=== PATIENT | male | born 1960 | race Caucasian/White ===

== ENCOUNTER 2017-05-24 08:13 | Outpatient (CLI) | payer OTHER ==
[~2017-05-24 08:13] MED LIST: CRESTOR10 MG; FENOFIBRATE134 MG; TRIGLIDE50 MG PO; VALSARTAN-HCTZ1 EACH; [UNRECOGNIZED DRUG - OTHER]
== END 2017-05-24 08:23 | disposition home or self-care (01) ==
LOC: MRI 08:13
DX: N28.1 Cyst of kidney, acquired (principal)
CPT/HCPCS: 74181

== ENCOUNTER → 2017-07-10 | Day surgery (SDC) | payer OTHER | END | disposition home or self-care (01) | LOC: AMB-ENDOS 12:01 | DX: D12.2 Benign neoplasm of ascending colon (principal); D12.3 Benign neoplasm of transverse colon; K64.1 Second degree hemorrhoids ==

== ENCOUNTER 2017-10-16 09:12 | Emergency (ER) | payer OTHER ==
[~2017-10-16] VITALS: Ht 177.8 cm; Wt 93.0 kg
[2017-10-16] MEDS ORDERED: ATORVASTATIN CA10 MG (09:21)
[2017-10-16] MEDS ORDERED: KETO10TA2 PO (10:56)
[2017-10-16] MEDS ORDERED: NORFLEX100MG PO (10:56)
== END 2017-10-16 17:47 | disposition home or self-care (01) ==
LOC: ER 09:12
DX: S83.8X1A Sprain of other specified parts of right knee, initial encounter (principal); M25.561 Pain in right knee; X50.3XXA Overexertion from repetitive movements, initial encounter; Y93.89 Activity, other specified; Y92.89 Other specified places as the place of occurrence of the external cause; Y99.8 Other external cause status

== ENCOUNTER 2017-10-17 09:16 | Outpatient (CLI) | payer OTHER ==
[~2017-10-17 09:16] MED LIST changes: +ATORVASTATIN CA10 MG; +KETO10TA2 PO; +NORFLEX100MG PO
== END 2017-10-17 15:47 | disposition home or self-care (01) ==
LOC: MRI 09:16
DX: S89.91XA Unspecified injury of right lower leg, initial encounter (principal)
CPT/HCPCS: 73721

== ENCOUNTER 2019-02-15 22:45 | Inpatient (IN) | payer OTHER ==
[~2019-02-15] VITALS: Ht 175.3 cm; Wt 80.3 kg
[~2019-02-15 22:45] MED LIST changes: +LYRICA50 MG PO
[2019-02-18] MEDS ORDERED: OMEGA-3 ACID ETH1 GM PO (09:27)
[2019-02-18] MEDS ORDERED: FENOFIBRIC ACI135 MG PO (09:28)
[2019-02-25] MEDS ORDERED: AMOX-CLAV 875-1 EACH PO (15:19)
[2019-02-25] MEDS ORDERED: LOSARTAN POTASS50 MG PO (15:20)
[2019-02-25] MEDS ORDERED: INTESTINEX680 M1 PO (15:20)
== END 2019-02-25 16:31 | disposition home or self-care (01) | DRG 378 ==
LOC: ER 22:45 → MEDJ 02-16 09:36
PROVIDERS: ADMIT Internal Medicine
PROC: 02HV33Z Insertion of Infusion Device into Superior Vena Cava, Percutaneous Approach (ICD-10-PCS; 2019-02-16)
PROC: 3E0436Z Introduction of Nutritional Substance into Central Vein, Percutaneous Approach (ICD-10-PCS; 2019-02-16)
PROC: BW21Y0Z Computerized Tomography (CT Scan) of Abdomen and Pelvis using Other Contrast, Unenhanced and Enhanced (ICD-10-PCS; principal; 2019-02-20)
DX: K57.33 Diverticulitis of large intestine without perforation or abscess with bleeding (principal); Q61.01 Congenital single renal cyst; N17.8 Other acute kidney failure; E44.0 Moderate protein-calorie malnutrition; I10 Essential (primary) hypertension; N20.0 Calculus of kidney; E78.00 Pure hypercholesterolemia, unspecified; Z85.038 Personal history of other malignant neoplasm of large intestine; Z08 Encounter for follow-up examination after completed treatment for malignant neoplasm